=== PATIENT | female | born 1985 | race Caucasian/White ===

== ENCOUNTER 2022-07-21 18:59 | Emergency (ER) | payer BC ==
[~2022-07-21] VITALS: Ht 165.1 cm; Wt 70.3 kg
--- NOTE | 2022-07-21 19:48 | NUR ---
Per ingot stripper report, patient walked into ER with c/o chills, body ache and fatigue that started 2 days ago. She states white spots started to appear in her mouth today. [employer]OCIATE patient states she was seen at urgent care and had covid, Flu and strep test done and results was negative.
[2022-07-21 19:59] LABS: HEMATOCRIT 36.8 % (31.2-41.9); MEAN CORPUSCULAR HEMOGLOBIN 29.6 uug (24.7-32.8); MEAN CORPUSCULAR VOLUME 89.3 fL (75.5-95.3); PLATELET COUNT (AUTO) 269 K/uL (179-408)
[2022-07-21 20:09] LABS: CREATININE 0.7 mg/dL (0.6-1.3)
[2022-07-21 20:28] LABS: *MONOTEST NEGATIVE (NEGATIVE)
--- NOTE | 2022-07-21 20:40 | NUR ---
Dr. Cristina at bedside.
[2022-07-21] MEDS ORDERED: PHEN177S31 PO (21:05)
--- NOTE | 2022-07-21 21:08 | NUR ---
Patient discharged to home in stable condition. Written and verbal after care instructions given. Patient verbalizes understanding of instructions. Stressed follow up or return to ER for worsening s/s. Pt ambulated out of the ER with steady gait. All belongings with pt.
[2022-07-21 21:09] VITALS: BP 100/84
== END 2022-07-21 21:08 | disposition home or self-care (01) ==
LOC: ER 19:03
DX: M79.10 Myalgia, unspecified site (principal); J02.9 Acute pharyngitis, unspecified; K21.9 Gastro-esophageal reflux disease without esophagitis; Z79.899 Other long term (current) drug therapy
CPT/HCPCS: 36415; 85025; 86308; 86403; A4663